=== PATIENT | female | born 1975 | race African-American/Black ===

== ENCOUNTER 2017-04-07 04:34 | Emergency (ER) | payer MEDICAID ==
[2017-04-07] MEDS ORDERED: IBUPROFEN 800 MG TABLET PO ONE (05:31)
--- NOTE | 2017-04-07 05:33 | ER Document Report ---
HPI - HPI Patient complains to provider of: wrist pain Pain Level: 3 Context: Patient is a-year-old female presents with right wrist pain over the base of the right thumb. Associated numbness and tingling in her first 3 fingers with associated chill. Patient states she has a history of carpal tunnel but has not had it for the past 2 years. Patient states pain started 2 days ago described as numbness/tingling and improves with Motrin - REPRODUCTIVE Reproductive: REPORTS: : - DERM Skin Color: Normal, [place] Past Medical History - Social History Smoking Status: Never Smoker Family History: Reviewed & Not Pertinent Patient has suicidal ideation: No Patient has homicidal ideation: No - Past Medical History Cardiac Medical History: Denies: Hx Coronary Artery Disease, Hx Heart Attack, Hx Hypertension Pulmonary Medical History: Denies: Hx Asthma, Hx Bronchitis, Hx COPD, Hx Pneumonia Neurological Medical History: Denies: Hx Cerebrovascular Accident, Hx Seizures Renal/ Medical History: Denies: Hx Peritoneal Dialysis Musculoskeltal Medical History: Denies Hx Arthritis - Immunizations Hx Diphtheria, Pertussis, Tetanus Vaccination: Yes Vertical Provider Document - CONSTITUTIONAL Agree With Documented VS: Yes Exam Limitations: No Limitations General Appearance: WD/WN, No Apparent Distress - INFECTION CONTROL TRAVEL OUTSIDE OF THE [place] IN LAST 30 DAYS: No - RESPIRATORY O2 Sat by Pulse Oximetry: 99 - CARDIOVASCULAR Cardiovascular: Regular Rate, Regular Rhythm, No Murmur Pulses: Normal: Radial Notes: Capillary refill less than 2 seconds in all upper extremity digits. - MUSCULOSKELETAL/EXTREMETIES Musculoskeletal/Extremeties: MAEW, FROM, Tender - +tinels sign over right wrist , positive reverse prayer on the right, No Edema. negative: Eccymosis - NEURO Level of Consciousness: Awake, Alert, Appropriate Motor/Sensory: No Motor Deficit, No Sensory Deficit - DERM Integumentary: Warm, Dry, No Rash Course - Re-evaluation Re-evalutation: 04/07/17 06:59 Patient is a 30-year-old female presents with carpal tunnel syndrome. Clinical suspicion for upper extremity ischemia, DVT given the patient has good blood flow and history of noncontributory for tobacco use, control use, recent travel or recent surgery/localization. Patient placed in cock-up splint with instruction to take Motrin and follow-up with primary care in 1 week - Vital Signs Vital signs: Temp Pulse Resp BP Pulse Ox 98.1 F 68 16 152/98 H 99 04/07/17 04:37 04/07/17 04:37 04/07/17 04:37 04/07/17 04:37 04/07/17 04:37 Discharge - Discharge Clinical Impression: Carpal tunnel syndrome on right Condition: Good Disposition: HOME, SELF-CARE Instructions: Carpal Tunnel Syndrome ([facility]), Use of Tmgt-Nem-[id number] Ibuprofen ( [facility]) Additional Instructions: Please follow up with primary care in one week for re-evaluation Prescriptions: Methylprednisolone [Medrol Dosepack (4 mg/Tab) 21 Tab/Dosepak] 4 mg PO ASDIR PRN #21 tab.ds.pk PRN Reason: Forms: Elevated Blood Pressure
[2017-04-07 05:45] VITALS: BP 148/86
== END 2017-04-07 05:45 | disposition home or self-care (01) ==
LOC: ER 04:34
DX: G56.01 Carpal tunnel syndrome, right upper limb (principal); M25.531 Pain in right wrist; R20.0 Anesthesia of skin
CPT/HCPCS: 99283; L3984; J3490

== ENCOUNTER 2019-03-14 17:50 | Emergency (ER) | payer MEDICAID, OTHER ==
[2019-03-14 18:10] VITALS: BP 144/97
--- NOTE | 2019-03-14 19:24 | ER Document Report ---
ED Medical Screen (RME) - General Chief Complaint: Abdominal Pain Stated Complaint: ABDOMINAL PAIN Time Seen by Provider: 03/14/19 19:16 Primary Care Provider: EB WISE PA-C [Primary Care Provider] - Follow up as needed Mode of Arrival: Ambulatory Information source: Patient Notes: Patient is a 43-year-old female presented to the emergency department with low a bdominal pain that started approximately 5 days ago. She denies any fevers, nausea, vomiting or diarrhea. She reports a normal appetite, states she last had a meal at 4 PM. She states that she was seen [facility] [place] [facility] and they were concerned that she may have appendicitis so they referred her to the emergency department. Patient also reports she has been having abnormal vaginal discharge. She states the [facility] diagnosed her with bacterial vaginosis but did not provide her any medication as they were more concerned about the abdominal pain. Patient denies any surgical history. Exam: Mild tenderness to palpation across the lower abdomen. I have greeted and performed a rapid initial assessment of this patient. A comprehensive ED assessment and evaluation of the patient, analysis of test results and completion of the medical decision making process will be conducted by additional ED providers. Dictation of this chart was performed using voice recognition software; therefore, there may be some unintended grammatical errors. TRAVEL OUTSIDE OF THE [place] IN LAST 30 DAYS: No - Related Data Allergies/Adverse Reactions: No Known Allergies Allergy (Verified 03/14/19 17:51) Past Medical History - Past Medical History Cardiac Medical History: Denies: Hx Coronary Artery Disease, Hx Heart Attack, Hx Hypertension Pulmonary Medical History: Denies: Hx Asthma, Hx Bronchitis, Hx COPD, Hx Pneumonia Neurological Medical History: Denies: Hx Cerebrovascular Accident, Hx Seizures Renal/ Medical History: Denies: Hx Peritoneal Dialysis Musculoskeltal Medical History: Denies Hx Arthritis - Immunizations Hx Diphtheria, Pertussis, Tetanus Vaccination: Yes Physical Exam - Vital signs Vitals: Temp Pulse Resp BP Pulse Ox 99.1 F 75 16 144/97 H 100 03/14/19 18:10 03/14/19 18:10 03/14/19 18:10 03/14/19 18:10 03/14/19 18:10 Course - Vital Signs Vital signs: Temp Pulse Resp BP Pulse Ox 99.1 F 75 16 144/97 H 100 03/14/19 18:10 03/14/19 18:10 03/14/19 18:10 03/14/19 18:10 03/14/19 18:10 Doctor's Discharge - Discharge Referrals: EB WISE PA-C [Primary Care Provider] - Follow up as needed
[2019-03-14 20:30] LABS: ABSOLUTE BASOPHILS # (AUTO) 0.1 10^3/uL (0.0-0.2); ABSOLUTE EOSINOPHILS # (AUTO) 0.1 10^3/uL (0.0-0.6); ABSOLUTE MONOCYTES (AUTO) 0.4 10^3/uL (0.1-1.4); ABSOLUTE NEUT (AUTO) 3.8 10^3/uL (1.7-8.2); BASOPHILS % (AUTO) 1.2 % (0-2); EOSINOPHILS % (AUTO) 1.3 % (0-6); HEMOGLOBIN 12.1 g/dL (12.0-15.5); LYMPHOCYTES % (AUTO) 31.8 % (13-45); MEAN CORPUSCULAR HGB CONC 32.6 g/dL (32.0-36.0); MEAN CORPUSCULAR VOLUME 89 fl (80-97); MONOCYTES % (AUTO) 6.8 % (3-13); PLATELET COUNT 219 10^3/uL (150-450); RED BLOOD COUNT 4.16 10^6/uL (3.72-5.28); SEGMENTED NEUTROPHILS % (AUTO) 58.9 % (42-78); TOTAL CELLS COUNTED % (AUTO) 100 %; WHITE BLOOD COUNT 6.4 10^3/uL (4.0-10.5)
[2019-03-14 20:39] LABS: APPEARANCE,URINE CLOUDY; BILIRUBIN,URINE NEGATIVE (NEGATIVE); COLOR,URINE YELLOW; GLUCOSE, URINE NEGATIVE (NEGATIVE); KETONES,URINE NEGATIVE (NEGATIVE); LEUKOCYTE ESTERASE,URINE TRACE (NEGATIVE); NITRITE,URINE NEGATIVE (NEGATIVE); PROTEIN,URINE NEGATIVE (NEGATIVE); URINE SPECIFIC GRAVITY 1.026
[2019-03-14 20:47] LABS: ALANINE AMINOTRANSFERASE 18 U/L (9-52); ALBUMIN 3.9 g/dL (3.5-5.0); ALKALINE PHOSPHATASE 42 U/L (38-126); ANION GAP 7 (5-19); ASPARTATE AMINO TRANSFERASE 17 U/L (14-36); BILIRUBIN,DIRECT 0.2 mg/dL (0.0-0.4); BILIRUBIN,TOTAL 0.6 mg/dL (0.2-1.3); BLOOD UREA NITROGEN 16 mg/dL (7-20); CARBON DIOXIDE 30 mmol/L (22-30); CHLORIDE 104 mmol/L (98-107); GLUCOSE 84 mg/dL (75-110); LIPASE 58.7 U/L (23-300); SODIUM 141.2 mmol/L (137-145); TOTAL PROTEIN 7.1 g/dL (6.3-8.2)
== END 2019-03-14 23:50 | disposition left against medical advice (07) ==
LOC: ER 17:50
DX: R10.30 Lower abdominal pain, unspecified (principal); N89.8 Other specified noninflammatory disorders of vagina; Z53.20 Procedure and treatment not carried out because of patient's decision for unspecified reasons
CPT/HCPCS: 36415; 80053; 81001; 83690; 85025; 99284

== ENCOUNTER 2019-03-18 09:30 | Emergency (ER) | payer SELFPAY ==
[2019-03-18 10:24] LABS: APPEARANCE,URINE SLIGHTLY-CLOUDY; BILIRUBIN,URINE NEGATIVE (NEGATIVE); COLOR,URINE YELLOW; GLUCOSE, URINE NEGATIVE (NEGATIVE); KETONES,URINE NEGATIVE (NEGATIVE); LEUKOCYTE ESTERASE,URINE TRACE (NEGATIVE); NITRITE,URINE NEGATIVE (NEGATIVE); PROTEIN,URINE NEGATIVE (NEGATIVE)
[2019-03-18] MEDS ORDERED: MORPHINE SULFATE 10 MG/ML INJ IV ONE (11:02)
[2019-03-18] MEDS ORDERED: ONDANSETRON HCL INJ/PF 4 MG/2 ML SDV IV ONE (11:03)
[2019-03-18] MEDS ORDERED: NORMAL SALINE 1000 ML 1,000 ML IV ONE (11:04)
--- NOTE | 2019-03-18 11:34 | RADIOLOGY REPORT (SQ) ---
EXAM DESCRIPTION: CT ABD/PELVIS NO ORAL OR IV COMPLETED DATE/TIME: 03/18/2019 11:16 am REASON FOR STUDY: RLQ pain COMPARISON: None. TECHNIQUE: CT scan of the abdomen and pelvis performed without intravenous or oral contrast. Images reviewed with lung, soft tissue, and bone windows. Reconstructed coronal and sagittal MPR images revi ewed. All images stored on PACS. All CT scanners at this facility use dose modulation, iterative reconstruction, and/or weight based d osing when appropriate to reduce radiation dose to as low as reasonably achievable (ALARA). [facility]: Dose Right [facility]: CareDose [facility]: Dose Right [facility]: Teradose 4D [facility]: Smart Fashion.me RADIATION DOSE: CT Rad equipment meets quality standard of care and radiation dose reduction techniq ues were employed. CTDIvol: 10.2 mGy. DLP: 570 mGy-cm.mGy. LIMITATIONS: None. FINDINGS: LOWER CHEST: No significant findings. No nodules or infiltrates. NON-CONTRASTED LIVER, SPLEEN, ADRENALS: Evaluation limited by lack of IV contrast. No identified sign ificant masses. PANCREAS: No masses. No peripancreatic inflammatory changes. GALLBLADDER: No identified stones by CT criteria. No inflammatory changes to suggest cholecystitis. RIGHT KIDNEY AND URETER: No suspicious masses. Assessment limited by lack of IV contrast. There are couple of tiny nonobstructing intrarenal calculi. No hydronephrosis or hydroureter. LEFT KIDNEY AND URETER: No suspicious masses. Assessment limited by lack of IV contrast. No signifi cant calcifications. No hydronephrosis or hydroureter. AORTA AND RETROPERITONEUM: No aneurysm. No retroperitoneal masses or adenopathy. BOWEL AND PERITONEAL CAVITY: No obvious masses or inflammatory changes. No free fluid. APPENDIX: Not identified. PELVIS, BLADDER, AND ABDOMINAL WALL:Urinary bladder is unremarkable. No abnormal pelvic mass or flui d collection. The uterus is prominent. There is a very small umbilical hernia containing only fat. BONES: No significant findings. OTHER: No other significant finding. IMPRESSION: No acute findings in the abdomen or pelvis. The appendix is not identified. There are no pericecal inflammatory changes, however. COMMENT: Quality ID # [id number]: Final reports with documentation of one or more dose reduction techniques (e.g., Automated exposure control, adjustment of the mA and/or kV according to patient size, use of iterative reconstruction technique) TECHNICAL DOCUMENTATION: JOB ID: [id number] [employer]- All Rights Reserved Reading location - IP/workstation name: [email or web address]
[2019-03-18 11:52] LABS: ABSOLUTE BASOPHILS # (AUTO) 0.1 10^3/uL (0.0-0.2); ABSOLUTE LYMPHOCYTES (AUTO) 1.6 10^3/uL (0.5-4.7); ABSOLUTE MONOCYTES (AUTO) 0.3 10^3/uL (0.1-1.4); ABSOLUTE NEUT (AUTO) 2.1 10^3/uL (1.7-8.2); BASOPHILS % (AUTO) 1.8 % (0-2); EOSINOPHILS % (AUTO) 1.2 % (0-6); HEMOGLOBIN 12.1 g/dL (12.0-15.5); LYMPHOCYTES % (AUTO) 39.6 % (13-45); MEAN CORPUSCULAR HEMOGLOBIN 28.4 pg (27.0-33.4); MEAN CORPUSCULAR HGB CONC 31.9 g/dL (32.0-36.0); MEAN CORPUSCULAR VOLUME 89 fl (80-97); MONOCYTES % (AUTO) 6.2 % (3-13); PLATELET COUNT 215 10^3/uL (150-450); RED BLOOD COUNT 4.26 10^6/uL (3.72-5.28); RED CELL DISTRIBUTION WIDTH 13.9 % (11.5-14.0); SEGMENTED NEUTROPHILS % (AUTO) 51.2 % (42-78); TOTAL CELLS COUNTED % (AUTO) 100 %; WHITE BLOOD COUNT 4.1 10^3/uL (4.0-10.5)
[2019-03-18 12:08] LABS: ALBUMIN 3.8 g/dL (3.5-5.0); ALKALINE PHOSPHATASE 36 U/L (38-126); ANION GAP 7 (5-19); ASPARTATE AMINO TRANSFERASE 19 U/L (14-36); BLOOD UREA NITROGEN 12 mg/dL (7-20); CALCIUM 8.3 mg/dL (8.4-10.2); CARBON DIOXIDE 29 mmol/L (22-30); CHLORIDE 104 mmol/L (98-107); GLUCOSE 86 mg/dL (75-110); POTASSIUM 4.4 mmol/L (3.6-5.0); SODIUM 139.5 mmol/L (137-145); TOTAL PROTEIN 6.9 g/dL (6.3-8.2)
[2019-03-18 12:10] LABS: ALANINE AMINOTRANSFERASE 26 U/L (9-52); BILIRUBIN,DIRECT 0.2 mg/dL (0.0-0.4); BILIRUBIN,TOTAL 0.5 mg/dL (0.2-1.3)
--- NOTE | 2019-03-18 14:19 | ER Document Report ---
ED General - General Chief Complaint: Abdominal Pain Stated Complaint: ABDOMINAL PAIN Time Seen by Provider: 03/18/19 10:22 Primary Care Provider: EB WISE PA-C [Primary Care Provider] - Follow up as needed TRAVEL OUTSIDE OF THE [place] IN LAST 30 DAYS: No - HPI Notes: Patient is a 43-year-old female who presents emergency department for evaluation of the right lower abdomen. Is been present for about a week. She states is generally always a dull ache, she has sharp intermittent stabbing pains with it. She states that pressure and pushing in the area, wearing her seatbelt, seem to worsen her pain. Nothing seems to make it better. She states that she is feeling hungry, starts to eat, but loses her appetite quickly. No nausea or vomiting. She has chronic constipation issues, states her last bowel movement was 4 days ago. She states this is not highly out of the ordinary for her. She was recently diagnosed with bacterial vaginosis. She states that this was treated and improved, but her symptoms have returned. She is in a monogamous relationship with her . She denies any other acute complaints or concerns. - Related Data Allergies/Adverse Reactions: No Known Allergies Allergy (Verified 03/14/19 17:51) Past Medical History - General Information source: Patient - Pneumonia - Social History Smoking Status: Current Every Day Smoker Frequency of alcohol use: Occasional Drug Abuse: None Family History: Reviewed & Not Pertinent Patient has suicidal ideation: No Patient has homicidal ideation: No - Past Medical History Cardiac Medical History: Denies: Hx Coronary Artery Disease, Hx Heart Attack, Hx Hypertension Pulmonary Medical History: Denies: Hx Asthma, Hx Bronchitis, Hx COPD, Hx Pneumonia Neurological Medical History: Denies: Hx Cerebrovascular Accident, Hx Seizures Renal/ Medical History: Denies: Hx Peritoneal Dialysis Musculoskeletal Medical History: Denies Hx Arthritis - Immunizations Hx Diphtheria, Pertussis, Tetanus Vaccination: Yes Review of Systems - Review of Systems Constitutional: No symptoms reported EENT: No symptoms reported Cardiovascular: No symptoms reported Respiratory: No symptoms reported Gastrointestinal: See HPI Genitourinary: No symptoms reported Female Genitourinary: See HPI Musculoskeletal: No symptoms reported Skin: No symptoms reported Neurological/Psychological: No symptoms reported Physical Exam - Vital signs Vitals: Temp Pulse Resp BP Pulse Ox 98.3 F 63 16 141/97 H 100 03/18/19 09:39 03/18/19 09:39 03/18/19 09:39 03/18/19 09:39 03/18/19 09:39 - Notes Notes: Vital signs reviewed, please refer to chart. Head is normocephalic, atraumatic. Pupils equal round, reactive to light. Neck is supple without meningismus. Heart is regular rate and rhythm. Lungs are clear to auscultation bilaterally. Abdomen is soft, normoactive bowel sounds throughout. Moderate right pelvic tenderness to palpation without rebound or guarding. Extremities without cyanosis, clubbing. Posterior calves are nontender. Peripheral pulses are equal. Skin is warm and dry. Patient is awake, alert, oriented x3. Cranial nerves II through XII are grossly intact without focal neurological deficits. Strength is +5-5 bilateral upper and lower extreme knees. Sensation is intact. Intact [id number], rapid altering movements, [id number]. Course - Re-evaluation Re-evalutation: 03/18/19 14:20 Patient presents emergency department for evaluation of right lower quadrant abdominal pain. Initially my concern was primarily about a gynecological issue. The patient states had a recent pelvic exam. She is extremely dizzy when she stands up, she is concerned about her appendix. CT scan was ordered. Appendix is not visible, but there were no pericecal inflammatory signs. Laboratory investigations were entirely unremarkable. She does not have significant leukocytosis, no significant findings on urine. She was treated here in the emergency department medications with some improvement. Ultrasound was ordered and was largely unremarkable as well. I do not have a clear etiology for this patient's pain. She would like to follow-up with her primary care physician regarding this. She actually Kaden has an appointment on Monday. I will send her home with a small amount of pain medication. She is warned that this can worsen her constipation. She is to return to the emergency department with worsening or new concerning symptoms of any sort. 03/18/19 14:56 - Vital Signs Vital signs: Temp Pulse Resp BP Pulse Ox 98.3 F 49 L 16 134/88 H 100 03/18/19 09:39 03/18/19 14:07 03/18/19 09:39 03/18/19 14:07 03/18/19 09:39 - Laboratory Result Diagrams: 03/18/19 11:35 03/18/19 11:35 Laboratory results interpreted by me: 03/18/19 03/18/19 03/18/19 10:04 11:35 11:35 MCHC 31.9 L Calcium 8.3 L Alkaline Phosphatase 36 L Urine Urobilinogen 2.0 H Ur Leukocyte Esterase TRACE H - Diagnostic Test Radiology reviewed: Reports reviewed Radiology results interpreted by me: 03/18/19 14:20 Abdomen/Pelvis CT 03/18/19 11:03 IMPRESSION: No acute findings in the abdomen or pelvis. The appendix is not identified. There are no pericecal inflammatory changes, however. Discharge - Discharge Clinical Impression: Pelvic pain, Dizziness Condition: Stable Disposition: HOME, SELF-CARE Instructions: Abdominal Pain ([facility]), Dizziness ([facility]) Additional Instructions: No clear reason was found for your abdominal pain today. Take medication as needed for severe pain, watch for constipation as discussed. Follow-up as scheduled with your primary care doctor on Monday. If you develop worsening or new concerning symptoms of any sort, return immediately to the emergency department for reevaluation. Referrals: EB WISE PA-C [Primary Care Provider] - Follow up as needed
--- NOTE | 2019-03-18 14:26 | RADIOLOGY REPORT (SQ) ---
EXAM DESCRIPTION: U/S NON OB PEL TV W/DOPPLER COMPLETED DATE/TIME: 03/18/2019 2:04 pm REASON FOR STUDY: right pelvic pain LMP 03/02/2019 COMPARISON: 05/16/2011 TECHNIQUE: Dynamic and static grayscale images acquired of the pelvis via transvaginal approach and recorded on PACS. Additional selected color Doppler and spectral images recorded. LIMITATIONS: None. FINDINGS: UTERUS: Contour normal. No mass. ENDOMETRIAL STRIPE: No focal or generalized thickening. No masses. CERVIX: No nabothian cysts. RIGHT OVARY AND DOPPLER: Normal size. No worrisome masses. Normal arterial vascular flow without evid ence for torsion. LEFT OVARY AND DOPPLER: Ovary not seen. FREE FLUID: None noted. OTHER: No other significant finding. MEASUREMENTS: UTERUS: 11.5 x 7.7 x 6.3 cm. ENDOMETRIAL STRIPE: 12 mm. RIGHT OVARY: 2.9 x 1.5 x 1.6 cm. LEFT OVARY: Not seen. IMPRESSION: NORMAL TRANSVAGINAL PELVIC ULTRASOUND. TECHNICAL DOCUMENTATION: JOB ID: [id number] [employer]- All Rights Reserved Rev-03/16 Reading location - IP/workstation name: [email or web address]
[2019-03-18 15:20] VITALS: BP 124/81
== END 2019-03-18 15:24 | disposition home or self-care (01) ==
LOC: ER 09:30
DX: R10.2 Pelvic and perineal pain (principal); R42 Dizziness and giddiness; R10.9 Unspecified abdominal pain; R10.31 Right lower quadrant pain
CPT/HCPCS: 99284; 96361; 96374; 96375; 36415; 85025; 81025; 80053; 81001; 76830; 93976; 74176; J2270; J2405; J7030